=== PATIENT | female | born 1985 | race American Indian/Alaskan Native ===

== ENCOUNTER 2016-07-31 22:17 | Outpatient (CLI) | payer MEDICAID ==
[2016-07-31] MEDS ORDERED: LACTATED RINGERS 500 ML IV ONE (23:32)
[2016-07-31 23:53] LABS: Bilirubin,Urine NEG (Negative); Blood,Urine NEG (Negative); Ketones,Urine NEG (Negative); Leukocyte Esterase,Urine NEG (Negative); Mucus,Urine FEW /HPF; Nitrite,Urine NEG (Negative); Protein,Urine <15 mg/dL mg/dL (Negative); Urobilinogen,Urine < 2.0 mg/dL (<2.0); WBC,Urine < 1.0 /HPF (0.0-6.0)
[2016-08-01 00:08] VITALS: BP 108/74
== END 2016-08-01 00:30 | disposition home or self-care (01) ==
LOC: TRG 22:17
PROVIDERS: ATTEND Obstetrics & Gynecology
DX: O62.9 Abnormality of forces of labor, unspecified (principal); Z3A.23 23 weeks gestation of pregnancy
CPT/HCPCS: 81001

== ENCOUNTER 2016-08-11 09:40 | Outpatient (CLI) | payer MEDICAID ==
[2016-08-11 10:11] VITALS: BP 129/71
[2016-08-11] MEDS ORDERED: LACTATED RINGERS 500 ML IV ONE (10:19)
[2016-08-11 11:52] LABS: Bacteria,Urine 1+ /HPF (Negative); Bilirubin,Urine NEG (Negative); Blood,Urine SM (Negative); Ketones,Urine NEG (Negative); Leukocyte Esterase,Urine TR (Negative); Mucus,Urine 2+ /HPF; Nitrite,Urine POS (Negative); RBC,Urine < 1.0 /HPF (0.0-6.0); WBC,Urine > 182.0 /HPF (0.0-6.0)
[2016-08-11] MEDS ORDERED: LACTATED RINGERS 1,000 ML IV SCH (13:00)
[2016-08-11] MEDS ORDERED: ceFAZolin 2 GM in NACL 0.9% 100 ML IV ONE (13:30)
== END 2016-08-11 14:07 | disposition home or self-care (01) ==
LOC: TRG 09:40
PROVIDERS: ATTEND Obstetrics & Gynecology
DX: O47.02 False labor before 37 completed weeks of gestation, second trimester (principal); Z3A.24 24 weeks gestation of pregnancy
CPT/HCPCS: 81001; J0690; J7120; 59025; 96360; 96365

== ENCOUNTER 2016-10-10 08:49 | Outpatient (CLI) | payer MEDICAID ==
[2016-10-10] MEDS ORDERED: LACTATED RINGERS 500 ML IV ONE (09:36)
[2016-10-10 12:18] VITALS: BP 127/74
== END 2016-10-10 11:04 | disposition left against medical advice (07) ==
LOC: TRG 08:49
PROVIDERS: ATTEND Obstetrics & Gynecology
DX: O47.03 False labor before 37 completed weeks of gestation, third trimester (principal); Z3A.33 33 weeks gestation of pregnancy
CPT/HCPCS: 59025; J2590

== ENCOUNTER 2016-10-28 | Outpatient (CLI) | payer MEDICAID ==
[2016-10-28] MEDS ORDERED: NACL 0.9% 1000 ML 1,000 ML ONE (00:28)
[2016-10-28] MEDS ORDERED: NACL 0.9% 1000 ML 1,000 ML IV ONE (00:29)
--- NOTE | 2016-10-28 00:33 | Emergency Department Report ---
HPI - General Time Seen by Provider: 10/28/16 00:09 - HPI HPI: This is a 31-year-old Afro-Af[place] female presents the emergency department by EMS from home with complaint of waking up in the middle of night with heart palpitations. The patient denies any other significant past medical history but does say that she has had episodes like this in the past. Only occurs while she is . She is currently 32 weeks . Her ELECTRON GUN ASSEMBLER is Dr. John. She not take anything was not given anything for symptoms prior to presentation. She denies any chest pain, shortness of breath, nausea, vomiting or fever. She denies any abdominal pain, vaginal bleeding, dysuria. No recent travel or sick contacts at home. ED Past Medical Hx - Past Medical History Hx Hypertension: No Hx Heart Attack/AMI: No Hx Congestive Heart Failure: No Hx Diabetes: No Hx Deep Vein Thrombosis: No Hx Renal Disease: No Hx Sickle Cell Disease: No Hx Seizures: No Hx Asthma: No Hx COPD: No Hx HIV: No Additional medical history: HSV 1, orthostatic hypotension - Surgical History Additional Surgical History: c section x2 - Social History Smoking Status: Never Smoker - Medications Home Medications: Home Medications Medication Instructions Recorded Confirmed Last Taken Type Valacyclovir HCl [valACYclovir] 1 tab PO DAILY 01/31/15 04/16/15 01/30/15 09:00 History 1 Nitrofurantoin [place]/M-Cryst 100 mg PO Q12HR #14 capsule 04/16/15 Unknown Rx [Macrobid CAP] Phenazopyridine [Pyridium] 100 mg PO TID 3 Days 04/16/15 Unknown Rx Brompheniramine/Pseudoephed/Dm 10 ml PO Q4HR PRN #120 ml 07/09/15 Unknown Rx [Bromfed Dm Cough Syrup] traMADol [Ultram 50 MG tab] 50 mg PO Q6HR PRN #15 tablet 07/09/15 Unknown Rx Nitrofurantoin Macrocrysta(Nf) 100 mg PO QID #14 capsule 08/11/16 Unknown Rx [Macrodantin CAP] ED Review of Systems ROS: Stated complaint: HEART PALPITATIONS Other details as noted in HPI Comment: All other systems reviewed and negative Constitutional: denies: chills, fever Eyes: denies: eye pain, eye discharge, vision change ENT: denies: ear pain, throat pain Respiratory: denies: cough, shortness of breath, wheezing Cardiovascular: palpitations. denies: chest pain Gastrointestinal: denies: abdominal pain, nausea, diarrhea Genitourinary: denies: urgency, dysuria, discharge Musculoskeletal: denies: back pain, joint swelling, arthralgia Skin: denies: rash, lesions Neurological: denies: headache, weakness, paresthesias Physical Exam - Physical Exam Physical Exam: GENERAL: The patient is well-developed well-nourished. Patient is slightly anxious but in no acute distress. HEENT: Normocephalic. Atraumatic. Extraocular motions are intact. Patient has moist mucous membranes. Pupils equal reactive to light bilaterally. NECK: Supple. Trachea is midline. CHEST/LUNGS: Clear to auscultation. There is no respiratory distress noted. HEART/CARDIOVASCULAR: Regular. There is severe tachycardia. There is no gallop rub or murmur. ABDOMEN: Abdomen is soft, nontender. Patient has normal bowel sounds. There is no abdominal distention. Gravid uterus is palpable in the upper abdomen. SKIN: Skin is warm and dry. NEURO: The patient is awake, alert, and oriented. The patient is cooperative. The patient has no focal neurologic deficits. The patient has normal speech. MUSCULOSKELETAL: There is no tenderness or deformity. There is no limitation range of motion. There is no evidence of acute injury. ED Course - Consultations Consultation #1: I spoke with the patient's ELECTRON GUN ASSEMBLER service, Dr. torres, who would like the patient discharged to L&D for further evaluation of her contraction-like pains and monitoring. 10/28/16 01:46 ED Medical Decision Making - Lab Data Result diagrams: 10/28/16 00:29 10/28/16 00:29 - EKG Data -: EKG Interpreted by Me - EKG Data When compared to previous EKG there are: previous EKG unavailable Interpretation: other (SVT with PVCs, 160 bpm, normal axis, LVH) - Medical Decision Making 31-year-old female presents emergency department with palpitations and an SVT. On top that the patient is 32 weeks . Patient was placed on the court monitor and IV established. She was given 6 mg of adenosine without much change in her rhythm or rate. She was then given 12 mg of adenosine and her heart rate came down to about 120. We started some IV fluid while labs were drawn and sent. Labs are unremarkable including no signs of infection, electrolyte abnormalities, renal insufficiency, glucose abnormalities and she has normal thyroid function. The heart rate is come down to about 100. Patient 's symptoms have completely resolved. However about 15 minutes ago the patient started having some spasmodic lower abdominal and/or pelvic pains that are concerning for contractions. I spoke to the ELECT[employer] GUN ASSEMBLER service that the patient follows with and Dr. torres has requested the patient be discharged to L&D for further monitoring of the fetus and mother. - Differential Diagnosis SVT, hypothyroidism, electrolyte dysfunction, dysrhythmia Critical Care Time: No Critical care attestation.: If time is entered above; I have spent that time in minutes in the direct care of this critically ill patient, excluding procedure time. ED Disposition Clinical Impression: SVT (supraventricular tachycardia), Palpitations Qualifiers: Weeks of gestation: 32 weeks Qualified Code(s): Z3A.32 - 32 weeks gestation of Disposition: TO HOME OR SELFCARE Is pt being admited?: No Condition: Stable Instructions: Supraventricular Tachycardia (ED), Palpitations (ED) Additional Instructions: Please follow-up with your primary care doctor in the next few days. I'm giving her a referral for a local loadmaster, Dr. Cody, complications like to follow-up regarding the SVT and palpitations experienced. Return to the emergency department with any worsening of your symptoms or any acute distress. Referrals: PRIMARY CAREMD [Primary Care Provider] - 3-5 Days JACOB CODY MD [Staff Physician] - 3-5 Days RIKKI JOHN MD [Staff Physician] - 3-5 Days Time of Disposition: 01:44
[2016-10-28 01:05] LABS: Basophils % (Auto) 0.5 % (0.0-1.8); Eosinophils % (Auto) 0.7 % (0.0-4.3); Hematocrit 33.6 % (30.3-42.9); Hemoglobin 10.8 gm/dl (10.1-14.3); Mean Corpuscular HGB Conc 32 % (30-34); Mean Corpuscular Hemoglobin 24 pg (28-32); Mean Corpuscular Volume 74 fl (79-97); Platelet Count 220 K/mm3 (140-440); Red Blood Count 4.56 M/mm3 (3.65-5.03); Red Cell Distribution Width 15.2 % (13.2-15.2); White Blood Count 7.9 K/mm3 (4.5-11.0)
[2016-10-28 01:18] LABS: Alanine Aminotransferase 8 units/L (7-56); Albumin 3.7 g/dL (3.9-5); Albumin/Globulin Ratio 1.1 %; Alkaline Phosphatase 100 units/L (35-129); Anion Gap 19 mmol/L; Blood Urea Nitrogen 5 mg/dL (7-17); Carbon Dioxide 25 mmol/L (22-30); Chloride 100.8 mmol/L (98-107); Glucose 89 mg/dL (65-100); Potassium 3.5 mmol/L (3.6-5.0); Sodium 141 mmol/L (137-145); Total Protein 7.1 g/dL (6.3-8.2)
[2016-10-28 01:45] LABS: Bilirubin,Direct < 0.2 mg/dL (0-0.2)
[2016-10-28 03:11] VITALS: BP 106/48
== END 2016-10-28 03:50 | disposition home or self-care (01) ==
LOC: TRG → ED → EDSTATUS 01:58 → TRG 02:04
PROVIDERS: ATTEND Obstetrics & Gynecology Gynecology
DX: O26.893 Other specified pregnancy related conditions, third trimester (principal); R00.2 Palpitations; O41.03X0 Oligohydramnios, third trimester, not applicable or unspecified; Z3A.32 32 weeks gestation of pregnancy
CPT/HCPCS: 36415; 59025; 80048; 80074; 84443; 84484; 85025; 93005; 93010; J0153; J7030

== ENCOUNTER 2016-12-18 18:04 | Emergency (ER) | payer MEDICAID ==
[2016-12-18 19:05] VITALS: BP 126/79
[2016-12-18 19:41] LABS: Basophils % (Auto) 0.6 % (0.0-1.8); Eosinophils % (Auto) 2.7 % (0.0-4.3); Hematocrit 32.6 % (30.3-42.9); Hemoglobin 10.4 gm/dl (10.1-14.3); Mean Corpuscular HGB Conc 32 % (30-34); Mean Corpuscular Hemoglobin 23 pg (28-32); Mean Corpuscular Volume 73 fl (79-97); Platelet Count 363 K/mm3 (140-440); Red Blood Count 4.44 M/mm3 (3.65-5.03); Red Cell Distribution Width 16.1 % (13.2-15.2)
--- NOTE | 2016-12-19 10:24 | ED Elopement Review ---
ED Pt Elopement review - Results review Lab results: Laboratory Tests 12/18/16 12/18/16 19:16 19:20 WBC 6.0 RBC 4.44 Hgb 10.4 Hct 32.6 MCV 73 L MCH 23 L MCHC 32 RDW 16.1 H Plt Count 363 Lymph % (Auto) 30.6 [place] % (Auto) 7.0 Eos % (Auto) 2.7 Baso % (Auto) 0.6 Lymph # 1.8 [place] # 0.4 Eos # 0.2 Baso # 0.0 Seg Neutrophils % 59.1 Seg Neutrophils # 3.6 Blood Type O POSITIVE Antibody Screen TNR SERGE Antibody Screen Negative - Call Back decision Pt Call Back Decision: Call pt to return to ED BETY (Call to check in with patient - if okay, nothing to do - if SOB still, return for eval)
== END 2016-12-18 20:25 | disposition left against medical advice (07) ==
LOC: ED 18:04
DX: R06.02 Shortness of breath (principal); Z53.21 Procedure and treatment not carried out due to patient leaving prior to being seen by health care provider
CPT/HCPCS: 36415; 85025; 86850; 86900; 86901

== ENCOUNTER 2017-06-12 09:41 | Emergency (ER) | payer MEDICAID ==
[2017-06-12] MEDS ORDERED: DELTASONE PO ONE (11:57)
[2017-06-12] MEDS ORDERED: MOTRIN PO ONE (11:57)
[2017-06-12] MEDS ORDERED: MOTRIN ONE (12:00)
--- NOTE | 2017-06-12 13:21 | Emergency Department Report ---
HPI - General Chief Complaint: Sore Throat Time Seen by Provider: 06/12/17 13:16 - HPI HPI: 32-year-old female presents today complaining of sore throat since yesterday. Admits to painful swallowing. Patient states that she has had a cough for the past 2 days but reports worsening of symptoms yesterday. Denies fever, chills, nausea, vomiting, chest pain, shortness of breath, abdominal pain. ED Past Medical Hx - Past Medical History Previous Medical History?: Yes Hx Hypertension: No Hx Heart Attack/AMI: No Hx Congestive Heart Failure: No Hx Diabetes: No Hx Deep Vein Thrombosis: No Hx Renal Disease: No Hx Sickle Cell Disease: No Hx Seizures: No Hx Asthma: Yes (last attack 2 years ago) Hx COPD: No Hx HIV: No Additional medical history: HSV 1, orthostatic hypotension - Surgical History Past Surgical History?: Yes Additional Surgical History: c section x2 - Social History Smoking Status: Never Smoker Substance Use Type: None - Medications Home Medications: Home Medications Medication Instructions Recorded Confirmed Last Taken Type Valacyclovir HCl [valACYclovir] 1 tab PO DAILY 01/31/15 12/10/16 01/30/15 09:00 History 1 Nitrofurantoin [place]/M-Cryst 100 mg PO Q12HR #14 capsule 04/16/15 12/10/16 Unknown Rx [Macrobid CAP] Phenazopyridine [Pyridium] 100 mg PO TID 3 Days tab 04/16/15 12/10/16 Unknown Rx Brompheniramine/Pseudoephed/Dm 10 ml PO Q4HR PRN #120 ml 07/09/15 12/10/16 Unknown Rx [Bromfed Dm Cough Syrup] traMADol [Ultram 50 MG tab] 50 mg PO Q6HR PRN #15 tablet 07/09/15 12/10/16 Unknown Rx Nitrofurantoin Macrocrysta(Nf) 100 mg PO QID #14 capsule 08/11/16 12/10/16 Unknown Rx [Macrodantin CAP] Ibuprofen [Motrin 600 MG tab] 600 mg PO Q8H PRN #30 tablet 12/10/16 Unknown Rx Multivitamin with Iron 1 each PO DAILY #30 tablet 12/10/16 Unknown Rx [Multivitamins with Iron] oxyCODONE /ACETAMINOPHEN [Percocet 1 tab PO Q6HR PRN #30 tablet 12/10/16 Unknown Rx 5/325] Amoxicillin [Amoxicillin TAB] 875 mg PO BID #20 tablet 06/12/17 Unknown Rx Lidocaine Viscous 2% 15 ml MM TID 2 Days #90 udc 06/12/17 Unknown Rx ED Review of Systems ROS: Stated complaint: THROAT CLOSING Other details as noted in HPI Constitutional: denies: chills, fever, malaise Eyes: denies: eye pain ENT: throat pain. denies: ear pain, congestion Respiratory: cough. denies: shortness of breath, wheezing Cardiovascular: denies: chest pain, palpitations Endocrine: no symptoms reported Gastrointestinal: denies: abdominal pain, nausea, vomiting Skin: denies: rash, lesions Neurological: denies: headache, weakness, numbness, paresthesias Physical Exam - Physical Exam Vital Signs: Vital Signs 06/12/17 10:17 Temperature 99.1 F Pulse Rate 100 H Blood Pressure 127/72 O2 Sat by Pulse 98 Oximetry Physical Exam: GENERAL: The patient is well-developed and well-nourished. Patient is in NAD. HEAD: Normocephalic. Atraumatic. EYES: Extraocular motions are intact, PERRL. EARS: External auditory canals and tympanic membranes clear; hearing grossly intact. NOSE: Normal nasal mucosa with no nasal discharge. THROAT: Erythematous posterior pharynx. Bilateral tonsillomegaly with tonsillar exudates noted. Uvula midline. No drooling noted. NECK: Has severe anterior cervical lymphadenopathy. CHEST/LUNGS: Clear to auscultation throughout. HEART/CARDIOVASCULAR: Regular rate and rhythm. No murmurs, rubs or gallops. ABDOMEN: Abdomen is soft, nontender. Bowel sounds normoactive. No guarding or rebound tenderness. EXTREMITIES: Peripheral pulses intact. Capillary refill less than 2 seconds. NEURO: Alert and oriented x 3. Normal gait. ED Course Vital Signs 06/12/17 10:17 Temperature 99.1 F Pulse Rate 100 H Blood Pressure 127/72 O2 Sat by Pulse 98 Oximetry ED Medical Decision Making - Medical Decision Making 32-year-old female presents today complaining of sore throat since yesterday. Her rapid strep is positive. Patient is in no acute distress at this time. She will be discharged home and is encouraged to follow up with a primary care provider. She will be sent home on amoxicillin and viscous lidocaine and is encouraged to return to the emergency room for any worsening symptoms. Critical care attestation.: If time is entered above; I have spent that time in minutes in the direct care of this critically ill patient, excluding procedure time. ED Disposition Clinical Impression: Strep pharyngitis Disposition: DC-01 TO HOME OR SELFCARE Is pt being admited?: No Does the pt Need Aspirin: No Condition: Stable Instructions: Strep Throat (ED) Additional Instructions: Follow-up with primary care provider. Return to the emergency department if symptoms worsen. Alternate Tylenol and Motrin for the fever and pain. Prescriptions: Amoxicillin [Amoxicillin TAB] 875 mg PO BID #20 tablet Lidocaine Viscous 2% 15 ml MM TID 2 Days #90 udc Referrals: MERCY MENDEZ MD [Primary Care Provider] - 3-5 Days Forms: Work/School Release Form(ED) Time of Disposition: 13:26
[2017-06-12 13:25] VITALS: BP 136/77
== END 2017-06-12 13:38 | disposition home or self-care (01) ==
LOC: ED 09:41
DX: J02.0 Streptococcal pharyngitis (principal)
CPT/HCPCS: 87430; 99282; J7512

== ENCOUNTER 2017-09-28 09:12 | Emergency (ER) | payer MEDICAID ==
[2017-09-28 09:48] VITALS: BP 121/74
== END 2017-09-28 12:51 | disposition left against medical advice (07) ==
LOC: ED 09:12
DX: J02.9 Acute pharyngitis, unspecified (principal); Z53.21 Procedure and treatment not carried out due to patient leaving prior to being seen by health care provider

== ENCOUNTER 2018-07-23 15:03 | Emergency (ER) | payer MEDICAID | END 2018-07-23 16:49 | disposition left against medical advice (07) | LOC: ED 15:03 | DX: R07.89 Other chest pain (principal); Z53.21 Procedure and treatment not carried out due to patient leaving prior to being seen by health care provider | CPT/HCPCS: 93005; 93010 ==

== ENCOUNTER 2019-08-10 10:08 | Emergency (ER) | payer MEDICAID ==
[2019-08-10 10:16] VITALS: BP 136/74
[2019-08-10 10:41] LABS: Bilirubin,Urine NEG (Negative); Blood,Urine MOD (Negative); Color,Urine Yellow (Yellow); Mucus,Urine 3+ /HPF; Protein,Urine <15 mg/dL mg/dL (Negative); Urobilinogen,Urine < 2.0 mg/dL (<2.0)
[2019-08-10 10:42] LABS: HCG Qualitative,Urine Negative (Negative)
--- NOTE | 2019-08-10 12:12 | Emergency Department Report ---
ED Abdominal Pain HPI - General Chief Complaint: Abdominal Pain Stated Complaint: SIDE PAIN Time Seen by Provider: 08/10/19 11:52 Source: patient Mode of arrival: Ambulatory Limitations: No Limitations - History of Present Illness Initial Comments: 34-year-old -[place] female presents to the emergency room for 1 day history of left lower abdominal pain. Patient states that she was moving a bed when she thinks she may have a hurt herself. Patient also reports that she has not had a bowel movement in several days. Patient states that she is passing gas but no stool. Patient denies any nausea vomiting diarrhea does admit to constipation. Denies any dysuria. She does have a primary care provider at [facility]. Complaint: abdominal pain Onset/Timin -: days(s) Location: LLQ Migration to: no migration Severity: moderate Severity scale (0 -10): 7 Quality: aching Consistency: intermittent Improves With: nothing Worsens With: nothing Associated Symptoms: denies other symptoms - Related Data Home Medications Medication Instructions Recorded Confirmed Last Taken Valacyclovir HCl [valACYclovir] 1 tab PO DAILY 01/31/15 12/10/16 01/30/15 09:00 1 Previous Rx's Medication Instructions Recorded Last Taken Type Nitrofurantoin [place]/M-Cryst 100 mg PO Q12HR #14 capsule 04/16/15 Unknown Rx [Macrobid CAP] Phenazopyridine [Pyridium] 100 mg PO TID 3 Days tab 04/16/15 Unknown Rx Brompheniramine/Pseudoephed/Dm 10 ml PO Q4HR PRN #120 ml 07/09/15 Unknown Rx [Bromfed Dm Cough Syrup] traMADoL [Ultram 50 MG tab] 50 mg PO Q6HR PRN #15 tablet 07/09/15 Unknown Rx Nitrofurantoin Macrocrysta(Nf) 100 mg PO QID #14 capsule 08/11/16 Unknown Rx [Macrodantin CAP] Ibuprofen [Motrin 600 MG tab] 600 mg PO Q8H PRN #30 tablet 12/10/16 Unknown Rx Multivitamin with Iron 1 each PO DAILY #30 tablet 12/10/16 Unknown Rx [Multivitamins with Iron] oxyCODONE /ACETAMINOPHEN [Percocet 1 tab PO Q6HR PRN #30 tablet 12/10/16 Unknown Rx 5/325] Amoxicillin [Amoxicillin TAB] 875 mg PO BID #20 tablet 06/12/17 Unknown Rx Lidocaine Viscous 2% 15 ml MM TID 2 Days #90 udc 06/12/17 Unknown Rx Albuterol INH(or & Nicu Only) 2 puff IH Q4HR PRN #1 inhalation 04/23/18 Unknown Rx [ProAir HFA Inhaler] Benzonatate [Tessalon Perles] 100 mg PO Q8HR PRN #20 capsule 04/23/18 Unknown Rx Codeine Phosphate/Guaifenesin 180 ml PO Q8HR PRN #180 liquid 04/23/18 Unknown Rx [Guaifenesin-Codeine Syrup] predniSONE [Deltasone] 20 mg PO QDAY #15 tab 04/23/18 Unknown Rx polyethylene glycoL 3350 [Miralax 17 gm PO QDAY #20 packet 08/10/19 Unknown Rx 3350] Allergies Allergy/AdvReac Type Severity Reaction Status Date / Time naproxen Allergy Swelling Verified 10/28/16 00:36 Sulfa (Sulfonamide Allergy Itching Verified 10/28/16 00:36 Antibiotics) ED Review of Systems ROS: Stated complaint: SIDE PAIN Other details as noted in HPI Comment: All other systems reviewed and negative ED Past Medical Hx - Past Medical History Previous Medical History?: No Hx Hypertension: No Hx Heart Attack/AMI: No Hx Congestive Heart Failure: No Hx Diabetes: No Hx Deep Vein Thrombosis: No Hx Renal Disease: No Hx Sickle Cell Disease: No Hx Seizures: No Hx Asthma: Yes (last attack 2 years ago) Hx COPD: No Hx HIV: No Additional medical history: HSV 1, orthostatic hypotension - Surgical History Past Surgical History?: Yes Additional Surgical History: c section x2 - Social History Smoking Status: Never Smoker - Medications Home Medications: Home Medications Medication Instructions Recorded Confirmed Last Taken Type Valacyclovir HCl [valACYclovir] 1 tab PO DAILY 01/31/15 12/10/16 01/30/15 09:00 History 1 Nitrofurantoin [place]/M-Cryst 100 mg PO Q12HR #14 capsule 04/16/15 12/10/16 Unknown Rx [Macrobid CAP] Phenazopyridine [Pyridium] 100 mg PO TID 3 Days tab 04/16/15 12/10/16 Unknown Rx Brompheniramine/Pseudoephed/Dm 10 ml PO Q4HR PRN #120 ml 07/09/15 12/10/16 Unknown Rx [Bromfed Dm Cough Syrup] traMADoL [Ultram 50 MG tab] 50 mg PO Q6HR PRN #15 tablet 07/09/15 12/10/16 Unknown Rx Nitrofurantoin Macrocrysta(Nf) 100 mg PO QID #14 capsule 08/11/16 12/10/16 Unknown Rx [Macrodantin CAP] Ibuprofen [Motrin 600 MG tab] 600 mg PO Q8H PRN #30 tablet 12/10/16 Unknown Rx Multivitamin with Iron 1 each PO DAILY #30 tablet 12/10/16 Unknown Rx [Multivitamins with Iron] oxyCODONE /ACETAMINOPHEN [Percocet 1 tab PO Q6HR PRN #30 tablet 12/10/16 Unknown Rx 5/325] Amoxicillin [Amoxicillin TAB] 875 mg PO BID #20 tablet 06/12/17 Unknown Rx Lidocaine Viscous 2% 15 ml MM TID 2 Days #90 udc 06/12/17 Unknown Rx Albuterol INH(or & Nicu Only) 2 puff IH Q4HR PRN #1 inhalation 04/23/18 Unknown Rx [ProAir HFA Inhaler] Benzonatate [Tessalon Perles] 100 mg PO Q8HR PRN #20 capsule 04/23/18 Unknown Rx Codeine Phosphate/Guaifenesin 180 ml PO Q8HR PRN #180 liquid 04/23/18 Unknown Rx [Guaifenesin-Codeine Syrup] predniSONE [Deltasone] 20 mg PO QDAY #15 tab 04/23/18 Unknown Rx polyethylene glycoL 3350 [Miralax 17 gm PO QDAY #20 packet 08/10/19 Unknown Rx 3350] ED Physical Exam - General Limitations: No Limitations General appearance: alert, in no apparent distress - Head Head exam: Present: atraumatic, normocephalic - Eye Eye exam: Present: normal appearance - ENT ENT exam: Present: mucous membranes moist - Neck Neck exam: Present: normal inspection, full ROM - Respiratory Respiratory exam: Present: normal lung sounds bilaterally. Absent: respiratory distress - Cardiovascular Cardiovascular Exam: Present: regular rate, normal rhythm. Absent: systolic murmur, diastolic murmur, rubs, gallop - GI/Abdominal GI/Abdominal exam: Present: soft. Absent: distended, tenderness, guarding, rebound - Back Exam Back exam: Present: normal inspection - Neurological Exam Neurological exam: Present: alert, oriented X3, normal gait - Psychiatric Psychiatric exam: Present: normal affect, normal mood - Skin Skin exam: Present: warm, dry, intact, normal color. Absent: rash ED Course Vital Signs 08/10/19 10:09 Temperature 98.5 F Pulse Rate 88 Respiratory 18 Rate Blood Pressure 136/74 [Left] O2 Sat by Pulse 100 Oximetry ED Medical Decision Making - Medical Decision Making 34-year-old -[place] female presents to the emergency room for 1 day history of left lower abdominal pain. Patient states that she was moving a bed when she thinks she may have a hurt herself. Patient also reports that she has not had a bowel movement in several days. Patient states that she is passing gas but no stool. Patient denies any nausea vomiting diarrhea does admit to constipation. Denies any dysuria. She does have a primary care provider at [facility]. Urinalysis is negative for any acute findings. Negative test. Examination was nonspecific. Discussed with patient she can take [id number] MiraLAX or Colace or mag citrate. Discussed with patient she can take an ibuprofen or Tylenol as needed for pain. I discussed the patient to follow-up with her primary care provider if her symptoms persist or gets worse. Critical care attestation.: If time is entered above; I have spent that time in minutes in the direct care of this critically ill patient, excluding procedure time. ED Disposition Clinical Impression: Left lower quadrant abdominal pain, Constipation Disposition: DC-01 TO HOME OR SELFCARE Is pt being admited?: No Does the pt Need Aspirin: No Condition: Stable Instructions: Abdominal Pain (ED) Additional Instructions: Urinalysis is negative for any acute findings. Negative test. Discussed with patient she can take [id number] MiraLAX or Colace or mag citrate. Discussed with patient she can take an ibuprofen or Tylenol as needed for pain. I discussed the patient to follow-up with her primary care provider if her symptoms persist or gets worse. Prescriptions: polyethylene glycoL 3350 [Miralax 3350] 17 gm PO QDAY #20 packet Referrals: PRIMARY CARE, [Primary Care Provider] - 3-5 Days
== END 2019-08-10 12:33 | disposition home or self-care (01) ==
LOC: ED 10:08
DX: R10.32 Left lower quadrant pain (principal); K59.00 Constipation, unspecified; J45.909 Unspecified asthma, uncomplicated; Z79.899 Other long term (current) drug therapy; Z88.2 Allergy status to sulfonamides; Z88.8 Allergy status to other drugs, medicaments and biological substances
CPT/HCPCS: 81001; 81025

== ENCOUNTER 2021-03-27 07:40 | Emergency (ER) | payer MEDICAID ==
[2021-03-27 07:52] VITALS: BP 140/82
--- NOTE | 2021-03-27 09:21 | Emergency Department Report ---
ED ENT HPI - General Chief complaint: Dental/Oral Stated complaint: TONSILS SWOLLEN Time Seen by Provider: 03/27/21 08:15 Source: patient Mode of arrival: Ambulatory Limitations: No Limitations - History of Present Illness Initial comments: This is a 36-year-old female nontoxic, well nourished in appearance, no acute signs of distress presents to the ED with c/o of right lower toothache 3 weeks. Patient stated was seen by a dentist and was prescribed amoxicillin and has a procedure scheduled for this Thursday but stated does not have her prescription and denies taking the medication. Patient stated she is requesting for antibiotic refill. Patient describes toothache as aching level of 8 out of 10. Patient denies any facial swelling. Patient denies any numbness, tingling, fever, chills, headache, stiff neck, abdominal pain, chest pain, shortness of breath. Patient stated allergies to naproxen and sulfa. MD complaint: tooth pain -: days(s) Location: tooth # 1 - pain here Severity: mild Severity scale (0 -10): 8 Quality: aching Consistency: constant Improves with: none Worsens with: none Context- Dental: history of dental caries, poor dental care Associated Symptoms: gum swelling, toothache. denies: fever, cough, pain with swallowing, sore throat, tinnitus, hearing loss, discharge from ear, rhinorrhea - Related Data Home Medications Medication Instructions Recorded Confirmed Last Taken Valacyclovir HCl [valACYclovir] 1 tab PO DAILY 01/31/15 12/10/16 01/30/15 09:00 1 Previous Rx's Medication Instructions Recorded Last Taken Type Nitrofurantoin Edgar/M-Cryst 100 mg PO Q12HR #14 capsule 04/16/15 Unknown Rx [Macrobid CAP] Phenazopyridine [Pyridium] 100 mg PO TID 3 Days tab 04/16/15 Unknown Rx Brompheniramine/Pseudoephed/Dm 10 ml PO Q4HR PRN #120 ml 07/09/15 Unknown Rx [Bromfed Dm Cough Syrup] traMADoL [Ultram 50 MG tab] 50 mg PO Q6HR PRN #15 tablet 07/09/15 Unknown Rx Nitrofurantoin Macrocrysta(Nf) 100 mg PO QID #14 capsule 08/11/16 Unknown Rx [Macrodantin CAP] Ibuprofen [Motrin 600 MG tab] 600 mg PO Q8H PRN #30 tablet 12/10/16 Unknown Rx Multivitamin with Iron 1 each PO DAILY #30 tablet 12/10/16 Unknown Rx [Multivitamins with Iron] oxyCODONE /ACETAMINOPHEN [Percocet 1 tab PO Q6HR PRN #30 tablet 12/10/16 Unknown Rx 5/325] Amoxicillin [Amoxicillin TAB] 875 mg PO BID #20 tablet 06/12/17 Unknown Rx Lidocaine Viscous 2% 15 ml MM TID 2 Days #90 udc 06/12/17 Unknown Rx Albuterol Mdi (or & Nicu Only) 2 puff IH Q4HR PRN #1 inhalation 04/23/18 Unknown Rx [ProAir HFA Inhaler] Benzonatate [Tessalon Perles] 100 mg PO Q8HR PRN #20 capsule 04/23/18 Unknown Rx Codeine Phosphate/Guaifenesin 180 ml PO Q8HR PRN #180 liquid 04/23/18 Unknown Rx [Guaifenesin-Codeine Syrup] predniSONE [Deltasone] 20 mg PO QDAY #15 tab 04/23/18 Unknown Rx polyethylene glycoL 3350 [Miralax 17 gm PO QDAY #20 packet 08/10/19 Unknown Rx 3350] Amoxicillin [Amoxicillin TAB] 875 mg PO BID #20 tablet 03/27/21 Unknown Rx Chlorhexidine Mouthwash [Peridex] 15 ml MM BID #1 bottle 03/27/21 Unknown Rx Allergies Allergy/AdvReac Type Severity Reaction Status Date / Time naproxen Allergy Swelling Verified 03/27/21 07:48 Sulfa (Sulfonamide Allergy Itching Verified 03/27/21 07:48 Antibiotics) ED Dental HPI - General Chief complaint: Dental/Oral Stated complaint: TONSILS SWOLLEN Time Seen by Provider: 03/27/21 08:15 Source: patient Mode of arrival: Ambulatory Limitations: No Limitations - Related Data Home Medications Medication Instructions Recorded Confirmed Last Taken Valacyclovir HCl [valACYclovir] 1 tab PO DAILY 01/31/15 12/10/16 01/30/15 09:00 1 Previous Rx's Medication Instructions Recorded Last Taken Type Nitrofurantoin Edgar/M-Cryst 100 mg PO Q12HR #14 capsule 04/16/15 Unknown Rx [Macrobid CAP] Phenazopyridine [Pyridium] 100 mg PO TID 3 Days tab 04/16/15 Unknown Rx Brompheniramine/Pseudoephed/Dm 10 ml PO Q4HR PRN #120 ml 07/09/15 Unknown Rx [Bromfed Dm Cough Syrup] traMADoL [Ultram 50 MG tab] 50 mg PO Q6HR PRN #15 tablet 07/09/15 Unknown Rx Nitrofurantoin Macrocrysta(Nf) 100 mg PO QID #14 capsule 08/11/16 Unknown Rx [Macrodantin CAP] Ibuprofen [Motrin 600 MG tab] 600 mg PO Q8H PRN #30 tablet 12/10/16 Unknown Rx Multivitamin with Iron 1 each PO DAILY #30 tablet 12/10/16 Unknown Rx [Multivitamins with Iron] oxyCODONE /ACETAMINOPHEN [Percocet 1 tab PO Q6HR PRN #30 tablet 12/10/16 Unknown Rx 5/325] Amoxicillin [Amoxicillin TAB] 875 mg PO BID #20 tablet 06/12/17 Unknown Rx Lidocaine Viscous 2% 15 ml MM TID 2 Days #90 udc 06/12/17 Unknown Rx Albuterol Mdi (or & Nicu Only) 2 puff IH Q4HR PRN #1 inhalation 04/23/18 Unknown Rx [ProAir HFA Inhaler] Benzonatate [Tessalon Perles] 100 mg PO Q8HR PRN #20 capsule 04/23/18 Unknown Rx Codeine Phosphate/Guaifenesin 180 ml PO Q8HR PRN #180 liquid 04/23/18 Unknown Rx [Guaifenesin-Codeine Syrup] predniSONE [Deltasone] 20 mg PO QDAY #15 tab 04/23/18 Unknown Rx polyethylene glycoL 3350 [Miralax 17 gm PO QDAY #20 packet 08/10/19 Unknown Rx 3350] Amoxicillin [Amoxicillin TAB] 875 mg PO BID #20 tablet 03/27/21 Unknown Rx Chlorhexidine Mouthwash [Peridex] 15 ml MM BID #1 bottle 03/27/21 Unknown Rx Allergies Allergy/AdvReac Type Severity Reaction Status Date / Time naproxen Allergy Swelling Verified 03/27/21 07:48 Sulfa (Sulfonamide Allergy Itching Verified 03/27/21 07:48 Antibiotics) ED Review of Systems ROS: Stated complaint: TONSILS SWOLLEN Other details as noted in HPI Comment: All other systems reviewed and negative Constitutional: denies: chills, fever Eyes: denies: eye pain, eye discharge, vision change ENT: dental pain. denies: ear pain, throat pain Respiratory: denies: cough, shortness of breath, wheezing Cardiovascular: denies: chest pain, palpitations Endocrine: no symptoms reported Gastrointestinal: denies: abdominal pain, nausea, diarrhea Genitourinary: denies: urgency, dysuria, discharge Musculoskeletal: denies: back pain, joint swelling, arthralgia Skin: denies: rash, lesions Neurological: denies: headache, weakness, paresthesias Psychiatric: denies: anxiety, depression Hematological/Lymphatic: denies: easy bleeding, easy bruising ED Past Medical Hx - Past Medical History Hx Hypertension: No Hx Heart Attack/AMI: No Hx Congestive Heart Failure: No Hx Diabetes: No Hx Deep Vein Thrombosis: No Hx Renal Disease: No Hx Sickle Cell Disease: No Hx Seizures: No Hx Asthma: Yes (last attack 2 years ago) Hx COPD: No Hx HIV: No Additional medical history: HSV 1, orthostatic hypotension - Surgical History Additional Surgical History: c section x2 - Social History Smoking Status: Never Smoker - Medications Home Medications: Home Medications Medication Instructions Recorded Confirmed Last Taken Type Valacyclovir HCl [valACYclovir] 1 tab PO DAILY 01/31/15 12/10/16 01/30/15 09:00 History 1 Nitrofurantoin Edgar/M-Cryst 100 mg PO Q12HR #14 capsule 04/16/15 12/10/16 Unknown Rx [Macrobid CAP] Phenazopyridine [Pyridium] 100 mg PO TID 3 Days tab 04/16/15 12/10/16 Unknown Rx Brompheniramine/Pseudoephed/Dm 10 ml PO Q4HR PRN #120 ml 07/09/15 12/10/16 Unknown Rx [Bromfed Dm Cough Syrup] traMADoL [Ultram 50 MG tab] 50 mg PO Q6HR PRN #15 tablet 07/09/15 12/10/16 Unknown Rx Nitrofurantoin Macrocrysta(Nf) 100 mg PO QID #14 capsule 08/11/16 12/10/16 Unknown Rx [Macrodantin CAP] Ibuprofen [Motrin 600 MG tab] 600 mg PO Q8H PRN #30 tablet 12/10/16 Unknown Rx Multivitamin with Iron 1 each PO DAILY #30 tablet 12/10/16 Unknown Rx [Multivitamins with Iron] oxyCODONE /ACETAMINOPHEN [Percocet 1 tab PO Q6HR PRN #30 tablet 12/10/16 Unknown Rx 5/325] Amoxicillin [Amoxicillin TAB] 875 mg PO BID #20 tablet 06/12/17 Unknown Rx Lidocaine Viscous 2% 15 ml MM TID 2 Days #90 udc 06/12/17 Unknown Rx Albuterol Mdi (or & Nicu Only) 2 puff IH Q4HR PRN #1 inhalation 04/23/18 Unknown Rx [ProAir HFA Inhaler] Benzonatate [Tessalon Perles] 100 mg PO Q8HR PRN #20 capsule 04/23/18 Unknown Rx Codeine Phosphate/Guaifenesin 180 ml PO Q8HR PRN #180 liquid 04/23/18 Unknown Rx [Guaifenesin-Codeine Syrup] predniSONE [Deltasone] 20 mg PO QDAY #15 tab 04/23/18 Unknown Rx polyethylene glycoL 3350 [Miralax 17 gm PO QDAY #20 packet 08/10/19 Unknown Rx 3350] Amoxicillin [Amoxicillin TAB] 875 mg PO BID #20 tablet 03/27/21 Unknown Rx Chlorhexidine Mouthwash [Peridex] 15 ml MM BID #1 bottle 03/27/21 Unknown Rx ED Physical Exam - General Limitations: No Limitations General appearance: alert, in no apparent distress - Head Head exam: Present: atraumatic, normocephalic - Eye Eye exam: Present: normal appearance - Expanded ENT Exam Expanded Ear exam: Present: normal external inspection Mouth exam: Present: normal external inspection, tongue normal. Absent: drooling, trismus, muffled voice Teeth exam: Present: dental caries, dental tenderness #, gingival enlargement, other (No facial swelling. No abscess.) 1 - Dental Tenderness Throat exam: Positive: normal inspection, other (Uvula midline). Negative: tonsillar erythema, tonsillomegaly, tonsillar exudate, R peritonsillar mass, L peritonsillar mass - Neck Neck exam: Present: normal inspection, full ROM. Absent: tenderness, meni ngismus, lymphadenopathy - Respiratory Respiratory exam: Absent: respiratory distress - Cardiovascular Cardiovascular Exam: Present: regular rate - Extremities Exam Extremities exam: Present: full ROM - Back Exam Back exam: Present: full ROM - Neurological Exam Neurological exam: Present: alert, oriented X3, normal gait - Psychiatric Psychiatric exam: Present: normal affect, normal mood - Skin Skin exam: Present: warm, dry, intact, normal color. Absent: rash ED Course Vital Signs 03/27/21 07:48 Temperature 98.9 F Pulse Rate 87 Respiratory 18 Rate Blood Pressure 140/82 O2 Sat by Pulse 100 Oximetry - Reevaluation(s) Reevaluation #1: 03/27/21 09:26 Patient is speaking in full sentences with no signs of distress noted. ED Medical Decision Making - Medical Decision Making This is a 36-year-old female that presents with gingivitis and dental caries. Patient is stable and was examined by me. Exam does not show any dental abscess. Patient will be discharged with amoxicillin. Patient stated does have pain medication at home. At time of discharge, the patient does not seem toxic or ill in appearance. No acute signs of distress noted. Patient agrees to discharge treatment plan of care. No further questions noted by the patient. Critical care attestation.: If time is entered above; I have spent that time in minutes in the direct care of this critically ill patient, excluding procedure time. ED Disposition Clinical Impression: Dental caries, Gingivitis, Encounter for medication refill Disposition: HOME / SELF CARE / HOMELESS Is pt being admited?: No Does the pt Need Aspirin: No Condition: Stable Additional Instructions: Follow-up with a dentist doctor in 3-5 days or if symptoms worsen and continue return to emergency room as soon as possible. Prescriptions: Amoxicillin [Amoxicillin TAB] 875 mg PO BID #20 tablet Chlorhexidine Mouthwash [Peridex] 15 ml MM BID #1 bottle Referrals: PRIMARY CARE, [Referring] - 3-5 Days [facility] [Outside] - 3-5 Days [facility] [place] [Outside] - 3-5 Days Forms: Work/School Release Form(ED) Time of Disposition: 09:28
== END 2021-03-27 10:30 | disposition home or self-care (01) ==
LOC: ED 07:40
DX: K02.9 Dental caries, unspecified (principal); Z76.0 Encounter for issue of repeat prescription; J45.909 Unspecified asthma, uncomplicated; Z88.2 Allergy status to sulfonamides; Z88.8 Allergy status to other drugs, medicaments and biological substances
CPT/HCPCS: 99281